=== PATIENT | female | born 1950 | race Caucasian/White ===

== ENCOUNTER 2021-02-28 21:46 | Inpatient (IN) | payer MEDICARE, OTHER ==
[~2021-02-28] VITALS: Ht 167.6 cm; Wt 94.9 kg
[2021-02-28 22:07] VITALS: BP 84/51
[2021-02-28] MEDS ORDERED: ASA81BEC PO (22:55)
[2021-02-28] MEDS ORDERED: CALCIUM500 MG PO (22:56)
[2021-02-28] MEDS ORDERED: FIBER LAX625 MG PO (22:57)
[2021-02-28] MEDS ORDERED: CHILDREN'S ZYRT10 M1 PO (22:58)
[2021-02-28] MEDS ORDERED: GABAPENTIN100 MG PO (22:59)
[2021-02-28] MEDS ORDERED: MAGNESIUM250 M1 PO (23:01)
[2021-02-28] MEDS ORDERED: SUPER B COMPLE1 EAC2 PO (23:02)
[2021-02-28] MEDS ORDERED: PROTONIX40 M4 PO (23:02)
[2021-02-28] MEDS ORDERED: FISH OIL 1,001000 M3 PO (23:02)
[2021-02-28] MEDS ORDERED: VITAMIN B-122500 MCG SUBLING (23:03)
[2021-02-28] MEDS ORDERED: KLOR-CON M2020 MEQ PO (23:04)
[2021-02-28] MEDS ORDERED: VITAMIN D3 COM1 EACH PO (23:05)
[2021-02-28 23:06] LABS: BE -12.3 mmol/L (-2 to +3); PO2 71.9 mmHg (75.0-100.0); pH 7.366 (7.340-7.450)
[2021-02-28 23:08] LABS: ABSOLUTE LYMPHOCYTES 0.3 thou/uL (0.8-5.3); ABSOLUTE MONOCYTES 0.4 thou/uL (0.0-1.2); ABSOLUTE NEUTROPHILS 4.3 thou/uL (1.6-8.1); BASOPHILS 0.3 %; HEMATOCRIT 32.6 % (37.0-47.0); HEMOGLOBIN 10.7 gm/dL (12.0-15.0); LYMPHOCYTES 6.7 %; MCH 33.3 pg (26.0-34.0); MCHC 32.9 g/dL (28.0-37.0); MCV 101.4 fL (80.0-100.0); MONOCYTES 8.7 %; MPV 7.6 fl. (7.2-11.1); NUCLEATED RBCS 0 /100WBC; PLATELET COUNT* 114 thou/uL (150-400); POLYS 84.3 %; RBC 3.21 mil/uL (4.20-5.00); RDW-CV 15.2 % (10.5-14.5); WBC 5.1 thou/uL (4.0-11.0)
[2021-02-28 23:09] LABS: PCO2 19.9 mmHg (35.0-45.0)
[2021-02-28 23:13] LABS: CALCIUM 7.8 mg/dL (8.5-10.1); CREATININE 3.2 mg/dL (0.6-1.3); POTASSIUM 5.5 mmol/L (3.5-5.1)
[2021-02-28 23:17] LABS: APTT 31.5 Seconds (25.0-31.3); INR 1.5; PROTIME 15.7 Seconds (9.20-11.50)
[2021-02-28 23:25] LABS: ALBUMIN 2.1 g/dL (3.4-5.0); TOTAL BILIRUBIN 0.5 mg/dL (<0.1-1.0)
[2021-02-28 23:55] LABS: URINE BILIRUBIN NEGATIVE (Negative); URINE BLOOD NEGATIVE (Negative); URINE CLARITY CLEAR; URINE COLOR YELLOW; URINE GLUCOSE-RANDOM NEGATIVE (Negative); URINE KETONES NEGATIVE (Negative); URINE LEUKOCYTES-REFLEX NEGATIVE (Negative); URINE NITRITE-REFLEX NEGATIVE (Negative); URINE PROTEIN NEGATIVE (Negative); URINE UROBILINOGEN 0.2 E.U./dl (0.2-1.0)
[2021-03-01] VITALS (24 sets, daily range): BP systolic 69–95; BP diastolic 38–59
--- NOTE | 2021-03-01 10:32 | EKG ---
[place] [address] ELECTROCARDIOGRAM REPORT Name: MAITE HOLLEY Room: [address] ADM IN M.R.#: [id number] Admission: 03/01/21 Attend Phys: Adalid Kebede Discharge: Date of : 54 Date of Service: 02/28/212210 Report #: [id number] THIS REPORT FOR: //name// [facility] ED Test Date: 2021-02-28 Test Time: 22:11:08 Pat Name: MAITE HOLLEY Department: Room: [facility] Gender: F Social Psychologist: [place] : 1950 Requested By: Allison Mina Order Number: [id number] MD: Zcah Richards Measurements Intervals [place] Rate: 122 P: 31 MS: 148 QRS: -49 QRSD: 106 T: 62 QT: 334 QTc: 476 Interpretive Statements Sinus tachycardia Low voltage, extremity and precordial leads Consider anterolateral infarct Baseline wander in lead(s) I,III,aVL No previous ECG available for comparison Electronically Signed On 03-01-2021 10:32:29 CDT by Zach Richards [email or web address] <ELECTRONICALLY SIGNED> By: Zach Richards MD, FAC 03/01/21 1032 10 10 Zach Richards MD, FAC /EPI
[2021-03-01 12:12] LABS: HEMATOCRIT 24.7 % (37.0-47.0); HEMOGLOBIN 8.1 gm/dL (12.0-15.0); MCH 33.3 pg (26.0-34.0); MCHC 32.9 g/dL (28.0-37.0); MCV 101.2 fL (80.0-100.0); MPV 7.7 fl. (7.2-11.1); NUCLEATED RBCS 0 /100WBC; PLATELET COUNT* 89 thou/uL (150-400); RBC 2.44 mil/uL (4.20-5.00); RDW-CV 15.5 % (10.5-14.5); WBC 10.9 thou/uL (4.0-11.0)
[2021-03-01 12:36] LABS: ABSOLUTE EOSINOPHILS 0.1 thou/uL (0.0-0.7); ABSOLUTE LYMPHOCYTES 1.4 thou/uL (0.8-5.3); ABSOLUTE MONOCYTES 0.1 thou/uL (0.0-1.2); ABSOLUTE NEUTROPHILS 9.3 thou/uL (1.6-8.1)
[2021-03-01 12:37] LABS: ALBUMIN 1.6 g/dL (3.4-5.0); CALCIUM 6.8 mg/dL (8.5-10.1); CREATININE 2.8 mg/dL (0.6-1.3); PLATELET ESTIMATE DECREASED; POTASSIUM 5.2 mmol/L (3.5-5.1); TOTAL BILIRUBIN 0.4 mg/dL (<0.1-1.0); TOTAL PROTEIN 3.8 g/dL (6.4-8.2)
[2021-03-01 12:47] LABS: ANISOCYTOSIS 1+; POIKILOCYTOSIS 1+
[2021-03-02] VITALS (106 sets, daily range): BP systolic 63–119; BP diastolic 39–81
[2021-03-02 04:17] LABS: HEMATOCRIT 25.6 % (37.0-47.0); HEMOGLOBIN 8.4 gm/dL (12.0-15.0); MCH 33.1 pg (26.0-34.0); MCHC 32.8 g/dL (28.0-37.0); MCV 100.8 fL (80.0-100.0); MPV 8.1 fl. (7.2-11.1); RBC 2.54 mil/uL (4.20-5.00); RDW-CV 15.4 % (10.5-14.5); WBC 13.5 thou/uL (4.0-11.0)
[2021-03-02 04:26] LABS: ALBUMIN 1.6 g/dL (3.4-5.0); CREATININE 2.8 mg/dL (0.6-1.3); MAGNESIUM 1.7 mg/dL (1.8-2.4); POTASSIUM 4.5 mmol/L (3.5-5.1); TOTAL BILIRUBIN 0.5 mg/dL (<0.1-1.0); TOTAL PROTEIN 4.2 g/dL (6.4-8.2)
--- NOTE | 2021-03-02 11:53 | EKG ---
[place] [address] ELECTROCARDIOGRAM REPORT Name: MAITE HOLLEY Room: [address] ADM IN M.R.#: [id number] Admission: 03/01/21 Attend Phys: Adalid Kebede Discharge: Date of : 54 Date of Service: 03/02/21 0504 Report #: [id number] THIS REPORT FOR: //name// [facility] Test Date: 2021-03-02 Test Time: 05:04:32 Pat Name: MAITE HOLLEY Department: Room: [address] Gender: F Legal Executive Assistant: UNKNOWN : 1950 Requested By: Adalid Kebede Order Number: [id number] MD: Ayush Carlson Measurements Intervals [place] Rate: 141 P: 0 MO: 144 QRS: -26 QRSD: 97 T: 87 QT: 318 QTc: 487 Interpretive Statements Sinus tachycardia Borderline left axis deviation Low voltage, extremity and precordial leads Borderline prolonged QT interval Compared to ECG 02/28/2021 22:11:08 Myocardial infarct finding no longer present Electronically Signed On 03-02-2021 11:52:51 CDT by Ayush Carlson [email or web address] <ELECTRONICALLY SIGNED> By: Ayush Carlson MD, FACC 03/02/21 1152 0504 0504 Ayush Carlson MD, FACC /EPI
--- NOTE | 2021-03-02 13:46 | 2DMMODE ---
[place] [address] 2 D/M-MODE ECHOCARDIOGRAM Name: KASSY HOLLEYRADHA Miles Room: [address] IN [facility]#: [id number] Admission: 03/01/21 Attend Phys: Adalid Kebede Discharge: Date of : 54 Date of Service: 03/02/21 1346 Report #: [id number] THIS REPORT FOR: cc: Elvia Chan MD, Gretchen MD Liston, Michael J. MD [facility] ~ APPROVED REPORT Study performed: 03/02/2021 11:31:59 EXAM: Comprehensive 2D, Doppler, and color-flow Echocardiogram Patient Location: In-Patient Room #: [facility] Status: routine BSA: 1.97 HR: 83 bpm BP: 84/50 mmHg Rhythm: NSR Other Information Study Quality: Good Indications Abnormal ECG Hypotension 2D Dimensions IVSd: 9.99 (7-11mm) LVOT Diam: 21.27 (18-24mm) LVDd: 43.13 mm PWd: 9.74 (7-11mm) Ascending Ao: 34.35 (22-36mm) LVDs: 23.05 (25-40mm) Aortic Root: 31.11 mm Volumes Left Atrial Volume (Systole) LA ESV Index: 21.10 mL/m2 Aortic Valve AoV Peak Marvin.: 1.42 m/s AO Peak Gr.: 8.04 mmHg LVOT Max P.63 mmHg AO Mean Gr.: 3.90 mmHg LVOT Mean P.30 mmHg LVOT Max V: 1.08 m/s AO V2 VTI: 23.25 cm LVOT Mean V: 0.70 m/s RAMONE (VTI): 3.45 cm2 LVOT V1 VTI: 22.60 [place] [address] 2 D/M-MODE ECHOCARDIOGRAM Name: MAITE HOLLEY Room: [address] IN ..#: [id number] Admission: 03/01/21 Attend Phys: Adalid Kebede Discharge: Date of : 54 Date of Service: 03/02/21 1346 Report #: [id number] Mitral Valve E/A Ratio: 1.14 MV Decel. Time: 193.51 ms MV E Max Mavrin.: 0.94 m/s MV PHT: 56.12 ms MVA (PHT): 3.92 cm2 TDI E/Lateral E': 8.55 Lateral E' Marvin.: 0.11 m/s Pulmonary Valve PV Peak Marvin.: 0.94 m/s PV Peak Gr.: 3.50 mmHg Tricuspid Valve RAP Estimate: 5.00 mmHg TR Peak Gr.: 18.37 mmHg RVSP: 23.00 mmHg PA Pressure: 23.00 mmHg Left Ventricle The left ventricle is normal size. There is normal LV segmental wall motion. There is normal left ventricular wall thickness. Left ventricular systolic function is normal. LVEF is 60-65%. Transmitral Doppler flow pattern suggests impaired LV relaxation. Right Ventricle The right ventricle is normal size. The right ventricular systolic function is normal. Atria The left atrium size is normal. The right atrium size is normal. Aortic Valve The aortic valve is normal in structure. Trace aortic regurgitation. There is no aortic valvular stenosis. Mitral Valve The mitral valve is normal in structure. There is no mitral valve regurgitation noted. No evidence of mitral valve stenosis. Tricuspid Valve The tricuspid valve is normal in structure. Mild tricuspid regurgitation. [place] [address] 2 D/M-MODE ECHOCARDIOGRAM Name: KISHANMAITE Room: [address]#: [id number] Admission: 03/01/21 Attend Phys: Adalid Kebede Discharge: Date of : 54 Date of Service: 03/02/21 1346 Report #: [id number] Pulmonic Valve The pulmonary valve is normal in structure. There is no pulmonic valvular regurgitation. Great Vessels The aortic root is normal in size. IVC is normal in size and collapses >50% with inspiration. Pericardium There is no pericardial effusion. <Conclusion> The left ventricle is normal size. There is normal left ventricular wall thickness. Left ventricular systolic function is normal. LVEF is 60-65%. Transmitral Doppler flow pattern suggests impaired LV relaxation. There is normal LV segmental wall motion. Trace aortic regurgitation. Mild tricuspid regurgitation. No pulmonary hypertension. IVC is normal in size and collapses >50% with inspiration. <ELECTRONICALLY SIGNED> By: Ayush Carlson MD, FACC 03/02/21 1346 1346 1346 Ayush Carlson MD, FACC /INF
[2021-03-03] VITALS: BP 90/53
[2021-03-03 04:00] VITALS: BP 91/51
[2021-03-03 04:08] LABS: HEMATOCRIT 22.6 % (37.0-47.0); HEMOGLOBIN 7.5 gm/dL (12.0-15.0); MCHC 33.4 g/dL (28.0-37.0); MPV 8.1 fl. (7.2-11.1); RBC 2.28 mil/uL (4.20-5.00); RDW-CV 15.1 % (10.5-14.5); WBC 7.7 thou/uL (4.0-11.0)
[2021-03-03 04:29] LABS: CALCIUM 7.1 mg/dL (8.5-10.1); CREATININE 2.5 mg/dL (0.6-1.3); POTASSIUM 4.5 mmol/L (3.5-5.1)
[2021-03-03 08:00] VITALS: BP 115/70
[2021-03-03 12:00] VITALS: BP 115/68
[2021-03-03 15:57] VITALS: BP 110/65
[2021-03-03 21:30] VITALS: BP 121/70
[2021-03-04] VITALS: BP 122/72
[2021-03-04 03:38] LABS: HEMATOCRIT 20.6 % (37.0-47.0); MCH 32.9 pg (26.0-34.0); MCHC 33.7 g/dL (28.0-37.0); MCV 97.7 fL (80.0-100.0); MPV 8.4 fl. (7.2-11.1); RBC 2.11 mil/uL (4.20-5.00); RDW-CV 14.5 % (10.5-14.5)
[2021-03-04 03:57] LABS: HEMOGLOBIN 6.9 gm/dL (12.0-15.0)
[2021-03-04 03:58] LABS: ALBUMIN 1.2 g/dL (3.4-5.0); CALCIUM 6.3 mg/dL (8.5-10.1); CREATININE 2.2 mg/dL (0.6-1.3); MAGNESIUM 1.4 mg/dL (1.8-2.4); PHOSPHORUS* 3.3 mg/dL (2.5-4.9); POTASSIUM 3.9 mmol/L (3.5-5.1)
[2021-03-04 05:00] VITALS: BP 134/58
[2021-03-04 08:00] VITALS: BP 121/66
[2021-03-04 12:01] VITALS: BP 118/67; BP 121/65; BP 121/70
[2021-03-04 13:51] VITALS: BP 117/72
[2021-03-04 15:45] VITALS: BP 118/70; BP 125/66; BP 126/74
[2021-03-05 00:23] VITALS: BP 1307/75
[2021-03-05 04:00] VITALS: BP 140/80
[2021-03-05 06:11] LABS: HEMATOCRIT 32.5 % (37.0-47.0); MCHC 34.6 g/dL (28.0-37.0); MPV 8.3 fl. (7.2-11.1); RBC 3.52 mil/uL (4.20-5.00); RDW-CV 16.3 % (10.5-14.5); WBC 8.2 thou/uL (4.0-11.0)
[2021-03-05 06:21] LABS: CALCIUM 7.8 mg/dL (8.5-10.1); CREATININE 2.8 mg/dL (0.6-1.3); MAGNESIUM 2.1 mg/dL (1.8-2.4); POTASSIUM 4.1 mmol/L (3.5-5.1)
[2021-03-05 06:31] LABS: HEMOGLOBIN 11.3 gm/dL (12.0-15.0); MCV 92.5 fL (80.0-100.0)
[2021-03-05 08:10] VITALS: BP 152/90
[2021-03-05 16:00] VITALS: BP 135/73
[2021-03-05 23:39] VITALS: BP 134/78
[2021-03-06 04:57] LABS: HEMATOCRIT 30.9 % (37.0-47.0); HEMOGLOBIN 10.6 gm/dL (12.0-15.0); MCH 32.1 pg (26.0-34.0); MCHC 34.3 g/dL (28.0-37.0); MCV 93.6 fL (80.0-100.0); MPV 7.6 fl. (7.2-11.1); RBC 3.3 mil/uL (4.20-5.00); RDW-CV 16.2 % (10.5-14.5); WBC 4.1 thou/uL (4.0-11.0)
[2021-03-06 05:11] LABS: CALCIUM 7.9 mg/dL (8.5-10.1); CREATININE 3.1 mg/dL (0.6-1.3)
[2021-03-06 08:00] VITALS: BP 129/86
[2021-03-06 11:16] VITALS: BP 136/82
[2021-03-06 16:26] VITALS: BP 139/85
[2021-03-06 20:30] VITALS: BP 117/66
[2021-03-07 05:02] LABS: ALBUMIN 1.7 g/dL (3.4-5.0); CALCIUM 7.6 mg/dL (8.5-10.1); POTASSIUM 3.6 mmol/L (3.5-5.1); TOTAL BILIRUBIN 0.3 mg/dL (<0.1-1.0); TOTAL PROTEIN 4.2 g/dL (6.4-8.2)
[2021-03-07 07:00] LABS: ABSOLUTE LYMPHOCYTES 1.4 thou/uL (0.8-5.3); ABSOLUTE MONOCYTES 0.2 thou/uL (0.0-1.2); ABSOLUTE NEUTROPHILS 1.8 thou/uL (1.6-8.1); BASOPHILS 0.1 %; HEMATOCRIT 31.9 % (37.0-47.0); HEMOGLOBIN 10.9 gm/dL (12.0-15.0); LYMPHOCYTES 40.8 %; MCH 32.4 pg (26.0-34.0); MCHC 34.2 g/dL (28.0-37.0); MCV 94.6 fL (80.0-100.0); MONOCYTES 5.1 %; MPV 7.2 fl. (7.2-11.1); NUCLEATED RBCS 0 /100WBC; PLATELET COUNT* 83 thou/uL (150-400); RBC 3.37 mil/uL (4.20-5.00); WBC 3.5 thou/uL (4.0-11.0)
[2021-03-07 08:15] VITALS: BP 141/80
[2021-03-07 09:16] VITALS: BP 117/66
[2021-03-07 15:56] VITALS: BP 147/78
[2021-03-07 17:53] VITALS: BP 117/66
[2021-03-07 17:58] VITALS: BP 117/66
[2021-03-07 19:52] VITALS: BP 117/66
== END 2021-03-07 18:30 | disposition home health service (06) | DRG 871 ==
LOC: M.ERS 21:46 → M.TBA-ER 03-01 00:36 → M.ICU 03-01 00:41 → M.TBA-ER 03-01 00:41 → M.ICU 03-01 01:53 → M.2W 03-02 20:51 → M.ORTHSURG 03-06 19:41
PROVIDERS: Family Medicine; Internal Medicine; Internal Medicine Nephrology; Personal Emergency Response Attendant; ADMIT Internal Medicine; ATTEND Internal Medicine
PROC: 5A0945A Assistance with Respiratory Ventilation, 24-96 Consecutive Hours, High Flow/Velocity Cannula (ICD-10-PCS; principal; 2021-03-01)
PROC: 30233N1 Transfusion of Nonautologous Red Blood Cells into Peripheral Vein, Percutaneous Approach (ICD-10-PCS; 2021-03-04)
DX: A41.9 Sepsis, unspecified organism (principal); E43 Unspecified severe protein-calorie malnutrition; J96.01 Acute respiratory failure with hypoxia; E87.2 Acidosis; N18.4 Chronic kidney disease, stage 4 (severe); N17.9 Acute kidney failure, unspecified; Z20.822 Contact with and (suspected) exposure to COVID-19; G25.81 Restless legs syndrome; I95.89 Other hypotension; K52.9 Noninfective gastroenteritis and colitis, unspecified; E86.0 Dehydration; R53.81 Other malaise; I12.9 Hypertensive chronic kidney disease with stage 1 through stage 4 chronic kidney disease, or unspecified chronic kidney disease; K21.9 Gastro-esophageal reflux disease without esophagitis; D47.2 Monoclonal gammopathy; D69.6 Thrombocytopenia, unspecified; E83.51 Hypocalcemia; D63.1 Anemia in chronic kidney disease; R62.7 Adult failure to thrive; R73.9 Hyperglycemia, unspecified; E83.42 Hypomagnesemia; Z98.84 Bariatric surgery status; Z90.5 Acquired absence of kidney; Z86.16 Personal history of COVID-19; Z79.82 Long term (current) use of aspirin; Z79.899 Other long term (current) drug therapy; Z68.33 Body mass index [BMI] 33.0-33.9, adult